=== PATIENT | male | born 1945 | race Caucasian/White ===

== ENCOUNTER → 2016-09-24 | Outpatient (CLI) | payer MEDICARE | END | disposition disaster alternative care site (69) | LOC: GRAD 08:36 | DX: R06.02 Shortness of breath (principal); R91.8 Other nonspecific abnormal finding of lung field | CPT/HCPCS: A9539; A9540 ==

== ENCOUNTER → 2016-09-27 | Outpatient (CLI) | payer MEDICARE ==
--- NOTE | ~2016-09-27 | PUL ---
PATIENT'S NAME: SHAKA CATES [facility] AGE: 71 Y [address] ROOM: [place] [id number] LOCATION: [facility] ADMIT DATE: 09/27/2016 Pulmonary DISCHARGE DATE: FAMILY PHYSICIAN: Fercho Huitron MD ATTENDING PHYSICIAN: Anthony Santoro NAME OF PROCEDURE: Cardiopulmonary Stress Test DATE OF PROCEDURE: September 27, 2016 TECH: DEVAN Whiting MEDICAL HISTORY: The patient is a 71-year-old gentleman with unexplained dyspnea on exertion. PULMONARY DATA: Pre exercise pulmonary function testing demonstrates spirometry without airflow obstruction. Diffusing capacity severely reduced. Lung volumes demonstrating chest restriction. Exercise did not induce desaturations. CARDIAC DATA: Resting 12-lead EKG was unremarkable. No dysrhythmias or ischemic changes were noted EXERCISE DATA: The patient exercised on a bicycle ergometer. Exercise was limited by shortness of breath. The patient exercised for a total of 4 minutes. He achieved 53% of his predicted maximum oxygen consumption. Work rate was 51% of predicted. Heart rate at peak exercise was 122 beats per minute or 81% of predicted. O2 pulse was low at 60% of predicted. Blood pressure response to exercise was appropriate. RESULTS: Significant exercise limitation. Cause uncertain however, restrictive lung disease and/or cardiac dysfunction should be considered. Patient does not appear to have obstructive lung disease. MD TRINITY DELEON/ /[id number] dtt: 10/15/16 0827 , Anthony Santoro. dtd: 10/01/16 1519
== END | disposition disaster alternative care site (69) ==
LOC: GCAR 07:00
DX: R06.02 Shortness of breath (principal)